=== PATIENT | female | born 1970 | race Caucasian/White ===

== ENCOUNTER 2020-05-27 12:15 | Emergency (ER) | payer OTHER ==
[~2020-05-27] VITALS: Ht 154.9 cm; Wt 61.2 kg
[2020-05-27 12:29] LABS: URINE BILIRUBIN NEGATIVE (Negative); URINE BLOOD 2+ (Negative); URINE CLARITY CLEAR; URINE COLOR YELLOW; URINE GLUCOSE-RANDOM NEGATIVE (Negative); URINE KETONES 1+ (Negative); URINE LEUKOCYTES-REFLEX NEGATIVE (Negative); URINE NITRITE-REFLEX NEGATIVE (Negative); URINE PROTEIN 1+ (Negative); URINE SPECIFIC GRAVITY 1.025 (1.005-1.030); URINE UROBILINOGEN 0.2 E.U./dl (0.2-1.0)
[2020-05-27 12:55] LABS: ABSOLUTE MONOCYTES 0.5 thou/uL (0.0-1.2); ABSOLUTE NEUTROPHILS 8.2 thou/uL (1.6-8.1); BASOPHILS 0.3 %; EOSINOPHILS 0.2 %; HEMATOCRIT 40.6 % (37.0-47.0); MCH 30.5 pg (26.0-34.0); MCHC 34.5 g/dL (28.0-37.0); MCV 88.4 fL (80.0-100.0); MONOCYTES 4.9 %; MPV 8.4 fl. (7.2-11.1); NUCLEATED RBCS 0 /100WBC; PLATELET COUNT* 197 thou/uL (150-400); POLYS 84.6 %; RBC 4.59 mil/uL (4.20-5.00); RDW-CV 13.7 % (10.5-14.5); WBC 9.7 thou/uL (4.0-11.0)
[2020-05-27 12:56] LABS: SQUAMOUS 4-10 Moderate /LPF (0-3); URINE RBC 3-10 Few /HPF (0-2); URINE WBC-REFLEX 0-5 Rare /HPF (0-5)
[2020-05-27 12:57] LABS: BACTERIA-REFLEX 1-9 Few /HPF (None Seen); CASTS None Seen /LPF (None Seen); CRYSTALS None Seen /LPF (None Seen)
[2020-05-27 13:02] LABS: CALCIUM 9.2 mg/dL (8.5-10.1); CREATININE 0.9 mg/dL (0.6-1.3); POTASSIUM 3.6 mmol/L (3.5-5.1)
[2020-05-27 13:18] LABS: ALBUMIN 4.5 g/dL (3.4-5.0); TOTAL BILIRUBIN 0.5 mg/dL (<0.1-1.0); TOTAL PROTEIN 7.8 g/dL (6.4-8.2)
[2020-05-27] MEDS ORDERED: FLOMAX0.4 MG PO (14:36)
[2020-05-27] MEDS ORDERED: ONDANSETRON HCL4 M2 PO (14:36)
[2020-05-27] MEDS ORDERED: CIPRO500 MG PO (14:36)
[2020-05-27] MEDS ORDERED: IBUPROFEN 800800 M1 PO (14:36)
[2020-05-27] MEDS ORDERED: NORCO 5-325 TA1 EAC2 PO (14:36)
[2020-05-27 15:08] VITALS: BP 83/50
--- NOTE | 2020-05-27 15:53 | EKG ---
[place] [address] ELECTROCARDIOGRAM REPORT Name: CRISTA BLANCOMEME Candie Room: [facility]#: [id number] Admission: 05/27/20 Attend Phys: Discharge: 05/27/20 Date of : 74 Date of Service: 05/27/20 1229 Report #: [id number] THIS REPORT FOR: //name// [facility] ED Test Date: 2020-05-27 Test Time: 12:29:55 Pat Name: GHASSAN BLANCO Department: Room: Gender: F [employer]: : 1970 Requested By: Lidia Fitzgerald Order Number: [id number] MD: Vick Ahmadi Measurements Intervals [place] Rate: 55 P: 50 DE: 165 QRS: -57 QRSD: 105 T: 18 QT: 421 QTc: 403 Interpretive Statements Sinus bradycardia Left anterior fascicular block Low voltage, precordial leads Abnormal R-wave progression, late transition No previous ECG available for comparison Electronically Signed On 05-27-2020 15:53:08 CDT by Vick Ahmadi [email or web address] <ELECTRONICALLY SIGNED> By: Vick Ahmadi MD, [facility] 05/27/20 1553 1229 1229 Vick Ahmadi MD, [facility] /EPI
== END 2020-05-27 15:08 | disposition home or self-care (01) ==
LOC: M.ERS 12:15
PROVIDERS: Nurse Practitioner Family
DX: N20.1 Calculus of ureter (principal); N13.30 Unspecified hydronephrosis; Z90.710 Acquired absence of both cervix and uterus; Z87.442 Personal history of urinary calculi; Z88.2 Allergy status to sulfonamides